=== PATIENT | male | born 1970 | race Caucasian/White ===

== ENCOUNTER 2016-08-03 06:25 | Emergency (ER) | payer OTHER ==
[~2016-08-03] VITALS: Ht 185.4 cm; Wt 113.4 kg
[2016-08-03] MEDS ORDERED: OSEL75CA PO (06:39)
[2016-08-03] MEDS ORDERED: TYLE500T78 PO (06:40)
[2016-08-03] MEDS ORDERED: NS 1,000 ML IV ONE (07:15)
[2016-08-03] MEDS ORDERED: ONDANSETRON 4MG/2ML VIAL (J2405) IV ONE (07:15)
--- NOTE | 2016-08-03 07:57 | REP ---
Clinical: Syncope . Comparison: 09/21/2013 . Findings: The mediastinum and cardiac silhouette are stable and within normal limits for portable technique. The lung willett are clear without acute consolidation, effusion, or pneumothorax. Skeletal structures are intact. Impression: Normal portable chest x-ray Signed by Roni Soriano MD 08/03/2016 07:48 A
[2016-08-03 08:11] LABS: BASO % 0.5 % (0.0-1.0); EOS % 2.4 % (0.0-3.0); LARGE UNSTAINED CELL # 0.1 K/mm3 (0.0-0.4); LARGE UNSTAINED CELL % 2.9 % (0.0-4.0); LYMPH # 0.9 K/mm3 (1.5-4.5); LYMPH % 45.2 % (24.0-44.0); MEAN CORPUSCULAR HEMOGLOBIN 30.3 pg (27.0-33.0); MEAN CORPUSCULAR HGB CONC 34.3 g/dl (32.0-36.5); MEAN CORPUSCULAR VOLUME 88.4 fl (80.0-96.0); MONO # 0.1 K/mm3 (0.0-0.8); MONO % 7.3 % (0.0-5.0); NEUTROPHILS # 0.8 K/mm3 (1.8-7.7); NEUTROPHILS % 41.7 % (36.0-66.0); PLATELET COUNT, AUTOMATED 166 k/mm3 (150-450); RED CELL DISTRIBUTION WIDTH 12.2 % (11.5-14.5)
[2016-08-03 08:19] LABS: ANION GAP 7 MEQ/L (8-16); BLOOD UREA NITROGEN 15 MG/DL (7-18); CALCIUM LEVEL 8.2 MG/DL (8.5-10.1); CARBON DIOXIDE LEVEL 28 MEQ/L (21-32); CHLORIDE LEVEL 106 MEQ/L (98-107); CREATININE FOR GFR 0.73 MG/DL (0.70-1.30); GLOMERULAR FILTRATION RATE > 60.0 (>60); GLUCOSE, FASTING 100 MG/DL (70-105); MAGNESIUM LEVEL 2.2 MG/DL (1.8-2.4); POTASSIUM SERUM 3.6 MEQ/L (3.5-5.1); SODIUM LEVEL 141 MEQ/L (136-145)
[2016-08-03 08:43] VITALS: BP 126/80
--- NOTE | 2016-08-03 19:47 | ECGEPIP ---
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
[2016-08-04] MEDS ORDERED: METAL LOCK LOOP XX ONE (05:47)
== END 2016-08-03 09:44 | disposition home or self-care (01) ==
LOC: M ED 07:38
DX: J10.89 Influenza due to other identified influenza virus with other manifestations (principal); R55 Syncope and collapse; Z88.0 Allergy status to penicillin; Z79.899 Other long term (current) drug therapy

== ENCOUNTER 2019-04-10 19:38 | Inpatient (IN) | payer BC, OTHER ==
[~2019-04-10] VITALS: Ht 185.4 cm; Wt 120.2 kg
[~2019-04-10 19:38] MED LIST: OSEL75CA PO; TYLE500T78 PO
[2019-04-10] MEDS ORDERED: IBUP200C25 PO (19:44)
[2019-04-10] MEDS ORDERED: MUCI1TAB16 PO (19:44)
[2019-04-10] MEDS ORDERED: NS 1,000 ML IV ONE (20:15)
[2019-04-10] MEDS ORDERED: ACETAMINOPHEN 500 MG TAB PO ONE (20:15)
[2019-04-10] MEDS ORDERED: cefTRIAXone SOD 1 GM in D5W MINI-BAG PLUS 50 ML IV ONE (20:15)
[2019-04-10] MEDS ORDERED: AZITHROMYCIN INJ 500 MG, VIAL MATE ADAPTER 1 EACH in D5W 250 ML IV ONE (20:15)
[2019-04-10 20:27] LABS: VENOUS BASE EXCESS -1.1 (-2.0-2.0); VENOUS O2 SATURATION 58.1 % (60.0-80.0); VENOUS PARTIAL PRESSURE CO2 37.1 mmHg (38.0-50.0); VENOUS PARTIAL PRESSURE O2 28.9 mmHg (30.0-50.0); VENOUS PH 7.411 UNITS (7.330-7.430); VENOUS STANDARD HCO3 22.6 MEQ/L; VENOUS TOTAL CO2 24.2 MEQ/L (24.0-28.0)
[2019-04-10] MEDS ORDERED: LevoFLOXacin IV 500 MG in IV 1 EA IV ONE (20:30)
[2019-04-10 20:33] LABS: BASO % 0.3 % (0.0-1.0); EOS % 0.4 % (0.0-3.0); HEMATOCRIT 41.2 % (42.0-52.0); HEMOGLOBIN 13.7 g/dl (13.5-17.5); LYMPH # 0.6 10^3/uL (1.5-5.0); LYMPH % 9.3 % (24.0-44.0); MEAN CORPUSCULAR HEMOGLOBIN 29.8 pg (27.0-33.0); MEAN CORPUSCULAR HGB CONC 33.3 g/dl (32.0-36.5); MEAN CORPUSCULAR VOLUME 89.6 fl (80.0-96.0); MONO # 0.5 10^3/uL (0.0-0.8); MONO % 7.9 % (0.0-5.0); NEUTROPHILS # 5.5 10^3/uL (1.5-8.5); NEUTROPHILS % 81.8 % (36.0-66.0); PLATELET COUNT, AUTOMATED 190 10^3/uL (150-450); WHITE BLOOD COUNT 6.8 10^3/uL (4.0-10.0)
[2019-04-10] MEDS ORDERED: ACET-683 PO (20:45)
[2019-04-10 20:53] LABS: BLOOD UREA NITROGEN 18 MG/DL (7-18); CALCIUM LEVEL 8.2 MG/DL (8.5-10.1); CARBON DIOXIDE LEVEL 26 MEQ/L (21-32); CHLORIDE LEVEL 106 MEQ/L (98-107); CREATININE FOR GFR 1.11 MG/DL (0.70-1.30); GLOMERULAR FILTRATION RATE > 60.0 (>56); GLUCOSE, FASTING 125 MG/DL (70-100); POTASSIUM SERUM 3.7 MEQ/L (3.5-5.1); SODIUM LEVEL 139 MEQ/L (136-145)
[2019-04-10 21:03] LABS: INFLUENZA A AMPLIFICATION NEGATIVE (NEGATIVE); INFLUENZA B AMPLIFICATION NEGATIVE (NEGATIVE)
--- NOTE | 2019-04-10 22:06 | HPEPDOC ---
General Date of Admission 04/10/19 Date of Service: Apr 10, 2019 Chief Complaint The patient is a 49-year-old male admitted with a reason for visit of Cold/Flu Symptoms. Source: Patient Exam Limitations: No limitations Severity: Moderate History of Present Illness 49 year old male with no PMH and no PMD has not seen any physician in 3 years initially presented to the urgent care today for fever , cough for 4 days. There he had a cxr and found to have pneumonia and was sent tot ED. As per patient his son has been sick and other family members around him has also had cough, cold and bronchitis. He started having a bad cough , dry 4 days ago with fevers about 102 which he was managing with tylenol and ibuprofen however today cough got worse and fever was up to 104 and he was feeling tired and washed out so went to the urgent care. In the urgent care he was given a nebulizer. 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 He was admitted for left lower lobe pneumonia. Home Medications Scheduled PRN Acetaminophen (Acetaminophen) 500 Mg Tablet, 1,000 MG PO Q6H PRN for PAIN / FEVER, (Reported) Guaifenesin (Mucinex) 1,200 Mg Tab.er.12h, 1,200 MG PO BID PRN for CONGESTION, (Reported) Ibuprofen (Ibuprofen) 200 Mg Capsule, 600 MG PO Q6H PRN for PAIN / FEVER, (Reported) Allergies Coded Allergies: Penicillins (Verified Allergy, Intermediate, HIVES, 04/10/19) Past Medical History Medical History obesity Surgical History tonsillectomy, adenoidectomy Family History Significant Family History: Diabetes (mother ), Renal disease (father ), Other (stroke mother) Social History * Smoker: Denies Alcohol: Denies Drugs: denies 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 A-FIB/CHADSVASC A-FIB History Current/History of A-Fib/PAF?: No Review of Systems Constitutional: Reports: Chills, Fever, Weakness, Fatigue Eyes: Denies: Pain, Vision change ENT: Reports: Head Aches, Post Nasal Drip, Sore Throat Skin: Denies: Rash, Lesions, Breakdown Pulmonary: Reports: Cough Cardiovascular: Denies: Chest Pain, Palpitations, Orthopnea, Paroxysmal Noc. Dyspnea, Lt Headedness Gastrointestinal: Denies: Nausea, Vomiting, Abdominal Pain, Diarrhea Genitourinary: Denies: Dysuria, Frequency, Incontinence, Retention Hematologic: Denies: Bruising, Bleeding Excessively Musculoskeletal: Denies: Neck Pain, Back Pain, Joint Pain, Muscle Pain, Spasms Neurological: Reports: Numbness (in both legs below knee today) Physical Examination General Exam: Positive: Alert, Cooperative, No Acute Distress Eye Exam: Positive: PERRLA, Conjunctiva & lids normal, EOMI; Negative: Sclera icteric ENT Exam: Positive: Atraumatic, Mucous membr. moist/pink, Pharynx Normal Neck Exam: Positive: Supple; Negative: JVD, thyromegaly Chest Exam: Positive: Rales (at cedric both bases left > right), Wheezing, Other (coarse breath sounds. ) Heart Exam: Positive: Rate Normal, Tachycardic, Regular Rhythm, Normal S1, Normal S2; Negative: Murmurs, Rubs Telemetry: Positive: No significant arrhythmia Abdomen Exam: Positive: Normal bowel sounds, Soft; Negative: Tenderness, Hepatospenomegaly Extremity Exam: Positive: Normal pulses; Negative: Clubbing, Cyanosis, Edema Skin Exam: Positive: Nl turgor and temperature; Negative: Breakdown, Lesion Neuro Exam: Positive: Normal Gait, Normal Speech, Cranial Nerves 3-12 NL, Other (numbness in the legs from knee to heels today. ) Psych Exam: Positive: Mental status NL, Mood NL, Oriented x 3 Vital Signs Vital Signs Date Time Temp Pulse Resp B/P (MAP) Pulse Ox O2 Delivery O2 Flow Rate FiO2 04/10/19 20:45 18 136/65 (88) 04/10/19 20:38 93 96 04/10/19 19:52 Room Air 04/10/19 19:39 97.9 Laboratory Data Labs 24H Laboratory Tests 2 04/10/19 20:18: Immature Granulocyte % (Auto) 0.3, Neutrophils (%) (Auto) 81.8H, Lymphocytes (%) (Auto) 9.3L, Monocytes (%) (Auto) 7.9H, Eosinophils (%) (Auto) 0.4, Basophils (%) (Auto) 0.3, Neutrophils # (Auto) 5.5, Lymphocytes # (Auto) 0.6L, Monocytes # (Auto) 0.5, Eosinophils # (Auto) 0.0, Basophils # (Auto) 0.0, Nucleated Red Blood Cells % (auto) 0.0, Blood Gas Bicarbonate Standard 22.6, Venous Blood pH 7.411, Venous Blood Partial Pressure CO2 37.1L, Venous Blood Partial Pressure O2 28.9L, Venous Blood Total Carbon Dioxide 24.2, Venous Blood HCO3 23.0, Venous Blood Oxygen Saturation 58.1L, Venous Blood Base Excess -1.1, Anion Gap 7L, Glomerular Filtration Rate > 60.0, Calcium Level 8.2L, Influenza Type A (RT-PCR) NEGATIVE, Influenza Type B (RT-PCR) NEGATIVE CBC/BMP Laboratory Tests 04/10/19 20:18 Microbiology Microbiology 04/10/19 Blood Culture, Received Pending Assessment/Plan 49 year old male with no PMH and no PMD has not seen any physician in 3 years initially presented to the urgent care today for fever , cough for 4 days. There he had a cxr and found to have pneumonia and was sent tot ED. As per patient his son has been sick and other family members around him has also had cough, cold and bronchitis. He started having a bad cough , dry 4 days ago with fevers about 102 which he was managing with tylenol and ibuprofen however today cough got worse and fever was up to 104 and he was feeling tired and washed out so went to the urgent care. In the urgent care he was given a nebulizer. 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 He was admitted for left lower lobe pneumonia. Community acquired pneumonia due to penicillin allergy will give levofloxacin IVF. Tylenol and ibuprofen for fever. albuterol nebs. Obesity says weight has been unchanged last 2 years. Plan / VTE VTE Prophylaxis Ordered?: Yes WALTER MORA MD Apr 10, 2019 22:06
[2019-04-10] MEDS ORDERED: IBUPROFEN 600 MG TAB PO ONE (22:30)
[2019-04-10] MEDS: NS 1,000 ML IV SCH (22:54)
[2019-04-10 22:56] VITALS: BP 123/66
[2019-04-10] MEDS: ALBUTEROL SULFATE 2.5 MG/0.5 ML INH NEB SOLN NEB SCH (23:43)
[2019-04-11] MEDS ORDERED: PROMETHAZINE INJ 25 MG/ML VIAL (J2550) IV PRN (04:30)
[2019-04-11] MEDS: METHOCARBAMOL 500 MG TAB PO PRN ×3 (04:49→12:14)
[2019-04-11] MEDS: AMITRIPTYLINE 10 MG TAB PO SCH ×2 (04:49→20:16)
[2019-04-11] MEDS: DEXTROMETHORPHAN 60MG/10ML SUSP 90ML BTL(DELSYM) PO PRN ×2 (04:50→16:29)
[2019-04-11] MEDS: NS 1,000 ML IV SCH ×3 (04:53→20:14)
[2019-04-11] MEDS: ACETAMINOPHEN 500 MG TAB PO PRN ×2 (04:53→16:29)
[2019-04-11 06:15] LABS: HEMATOCRIT 36.5 % (42.0-52.0); HEMOGLOBIN 12.2 g/dl (13.5-17.5); MEAN CORPUSCULAR HGB CONC 33.4 g/dl (32.0-36.5); MEAN CORPUSCULAR VOLUME 89.9 fl (80.0-96.0); PLATELET COUNT, AUTOMATED 154 10^3/uL (150-450); RED BLOOD COUNT 4.06 10^6/uL (4.30-6.10); WHITE BLOOD COUNT 5.3 10^3/uL (4.0-10.0)
[2019-04-11 06:23] VITALS: BP 110/56
[2019-04-11 06:37] LABS: BLOOD UREA NITROGEN 17 MG/DL (7-18); CALCIUM LEVEL 8.4 MG/DL (8.5-10.1); CARBON DIOXIDE LEVEL 24 MEQ/L (21-32); CHLORIDE LEVEL 107 MEQ/L (98-107); CREATININE FOR GFR 0.95 MG/DL (0.70-1.30); GLOMERULAR FILTRATION RATE > 60.0 (>56); GLUCOSE, FASTING 148 MG/DL (70-100); POTASSIUM SERUM 3.2 MEQ/L (3.5-5.1); SODIUM LEVEL 138 MEQ/L (136-145)
[2019-04-11] MEDS: ALBUTEROL SULFATE 2.5 MG/0.5 ML INH NEB SOLN NEB SCH ×3 (07:24→23:32)
[2019-04-11] MEDS: HEPARIN SOD (PORCINE) 5000 UNITS/ML VIAL SQ SCH ×2 (08:37→20:17)
[2019-04-11] MEDS: IBUPROFEN 800 MG TAB PO PRN ×2 (08:37→21:13)
[2019-04-11] MEDS ORDERED: POTASSIUM CHLORIDE 10 MEQ SR TABLET PO ONE (09:00)
[2019-04-11 14:00] VITALS: BP 121/72
--- NOTE | 2019-04-11 19:10 | IPNPDOC ---
Text Note Date of Service The patient was seen on 04/11/19. NOTE Subjective: -No complaints this morning, feels much better -No chest pain, shortness of breath, palpitations 10 point ROS was reviewed and otherwise negative if not noted above Objective: Vitals: Hemodynamically stable and afebrile General: Obese, NAD, was sleeping comfortably, awoke on voice HEENT: NCAT, MMM, PERRLA, EOMI Neck: No JVD, supple Pulm: L>R bibasilar crackles, otherwise without wheezing or rhonchi and moving air relatively well Cardiac: RRR, no noted murmurs Abd: Obese, soft, NTND Ext: no LE edema, report feet numbness bilaterally in toes, WWP Neuro: Grossly non focal exam, with feet sensation and proprioception intact despite numbness Labs: Reviewed. K 3.2, repleted Imaging: CXR showed LLL opacity 49 year old man with no known past medical history and no interaction with the healthcare system in a while (3 years) who presented to urgent care for fever and cough for 4 days and a CXR showed likely pneumonia and thus sent to the ED for evaluation where he reported his family members being recently ill with a URI and was admitted for left lower lobe pneumonia. Community acquired pneumonia -continue levofloxacin -s/p IVF. -Tylenol for fever. -albuterol nebs PRN Obesity -Discussed the benefit of weight loss and perhaps beginning with establishing a PCP who would help chart a longitudinal plan which he agrees to do at discharge. DVT ppx: heparin Diet: regular VS,Fishbone, I+O VS, Fishbone, I+O Laboratory Tests 04/10/19 20:18 04/11/19 06:05 Vital Signs Date Time Temp Pulse Resp B/P (MAP) Pulse Ox O2 Delivery O2 Flow Rate FiO2 04/11/19 14:00 100.0 88 17 121/72 (88) 95 Room Air I&O- Last 24 Hours up to 6 AM 04/11/19 06:00 Intake Total 3655 ml Output Total 0 ml Balance 3655 ml DAPHNE PETERSEN MD Apr 11, 2019 19:10
[2019-04-11] MEDS: LevoFLOXacin IV 750 MG in IV 1 EA IV SCH (20:15)
[2019-04-11 22:00] VITALS: BP 119/71
[2019-04-12] MEDS: NS 1,000 ML IV SCH ×3 (05:42→23:00)
[2019-04-12] MEDS: ACETAMINOPHEN 500 MG TAB PO PRN ×3 (05:42→23:39)
[2019-04-12 06:00] VITALS: BP 119/72
[2019-04-12] MEDS: ALBUTEROL SULFATE 2.5 MG/0.5 ML INH NEB SOLN NEB SCH ×2 (07:37→23:20)
[2019-04-12 08:20] LABS: HEMATOCRIT 35.7 % (42.0-52.0); HEMOGLOBIN 11.6 g/dl (13.5-17.5); MEAN CORPUSCULAR HEMOGLOBIN 29.4 pg (27.0-33.0); MEAN CORPUSCULAR HGB CONC 32.5 g/dl (32.0-36.5); MEAN CORPUSCULAR VOLUME 90.6 fl (80.0-96.0); PLATELET COUNT, AUTOMATED 170 10^3/uL (150-450); RED BLOOD COUNT 3.94 10^6/uL (4.30-6.10); WHITE BLOOD COUNT 5.1 10^3/uL (4.0-10.0)
[2019-04-12 08:41] LABS: BLOOD UREA NITROGEN 15 MG/DL (7-18); CALCIUM LEVEL 7.9 MG/DL (8.5-10.1); CARBON DIOXIDE LEVEL 23 MEQ/L (21-32); CHLORIDE LEVEL 109 MEQ/L (98-107); CREATININE FOR GFR 0.69 MG/DL (0.70-1.30); GLOMERULAR FILTRATION RATE > 60.0 (>56); GLUCOSE, FASTING 124 MG/DL (70-100); POTASSIUM SERUM 3.7 MEQ/L (3.5-5.1); SODIUM LEVEL 140 MEQ/L (136-145)
[2019-04-12] MEDS: HEPARIN SOD (PORCINE) 5000 UNITS/ML VIAL SQ SCH ×2 (09:37→21:06)
[2019-04-12] MEDS: IBUPROFEN 800 MG TAB PO PRN ×2 (09:37→21:05)
[2019-04-12] MEDS: METHOCARBAMOL 500 MG TAB PO PRN ×2 (09:38→16:00)
[2019-04-12] MEDS ORDERED: VANCOMYCIN HCL 1,000 MG, VIAL MATE ADAPTER 1 EACH in D5W 250 ML IV SCH (09:45)
--- NOTE | 2019-04-12 10:18 | IPNPDOC ---
Text Note Date of Service The patient was seen on 04/12/19. NOTE Subjective: -Actually feels quite poorly today, cannot lay on his left side, is now coughing up thick greenish sputum and had a fever overnight to 101 while on levaquin -No chest pain, shortness of breath, palpitations 10 point ROS was reviewed and otherwise negative except noted above Objective: Vitals: Hemodynamically stable and afebrile this morning, but had fever Tmax General: Obese, NAD HEENT: NCAT, MMM, PERRLA, EOMI Neck: No JVD, supple Pulm: L>R lower posterior lung crackles, otherwise without wheezing or rhonchi Cardiac: RRR, no noted murmurs Abd: Obese, soft, NTND Ext: no LE edema, WWP Neuro: Grossly non focal exam Labs: Reviewed. WBC 5.1, H/H 11.6/35.7, Cr 0.69 Imaging: No new interval imaging. Admission CXR with LLL opacity 49 year old man with no known past medical history and no interaction with the healthcare system in a while (3 years) who presented to urgent care for fever and cough for 4 days and a CXR showed likely pneumonia and thus sent to the ED for evaluation where he reported his family members being recently ill with a URI and was admitted for left lower lobe pneumonia with course c/b fever through levaquin, now empirically given vanc and recultured. Community acquired pneumonia -continue levofloxacin, give empiric vanc and resent sputum culture and blood cultures -s/p IVF, HDS -Tylenol for fever. -albuterol nebs PRN -continue dextromethorphan Obesity -To follow up after establishing PCP DVT ppx: heparin Diet: regular VS,Fishbone, I+O VS, Fishbone, I+O Laboratory Tests 04/12/19 07:47 Vital Signs Date Time Temp Pulse Resp B/P (MAP) Pulse Ox O2 Delivery O2 Flow Rate FiO2 04/12/19 06:00 98.9 86 16 119/72 (88) 97 Room Air I&O- Last 24 Hours up to 6 AM 04/12/19 06:00 Intake Total 2770 ml Balance 2770 ml DAPHNE PETERSEN MD Apr 12, 2019 10:18
[2019-04-12] MEDS ORDERED: VANCOMYCIN HCL 1,000 MG, VIAL MATE ADAPTER 1 EACH in D5W 250 ML IV ONE ×2 (11:00→12:00)
--- NOTE | 2019-04-12 13:53 | PHACANCOPD ---
PHARMACY VANCOMYCIN DOSING Pt Demographics Demographics Patient Age:49 , Weight:121.800 , Gender: male Events Past 24 Hours Events Past 24 Hours: NO: Dialysis, Diuretic Therapy, Change in CrCl, Fever, Elevation in WBC, Pending Diagnostics, Pending Procedures, Other Vancomycin Vancomycin indication: COMMUNITY ACQUIRED PNUEMONIA Vancomycin Target Ranges: 15-20 mcg/ml Vancomycin Load Y/N: Yes Load Dose Date Time Vancomycin Load Dose: 2G Date: 04/12/19 Time: 1100 Vancomycin Dose Date: 04/12/19. Current Vancomycin Dose: 1250MG Q8H STARTING AT 1600 Intermittent Dosing?: No Labs Labs Laboratory Tests 04/12/19 07:47 Micro Microbiology 04/12/19 Gram Stain - Final, Resulted 04/12/19 Sputum Culture, Resulted Pending 04/12/19 Blood Culture, Received Pending 04/12/19 Blood Culture, Received Pending 04/11/19 Gram Stain - Final, Resulted 04/11/19 Sputum Culture, Resulted Pending 04/10/19 Blood Culture - Preliminary, Resulted No growth after 24 hours . All specim... Creatinine Clearance Date:04/12/19. Creatinine Clearance: 173 calculated Pending Labs BC PENDING, UC PENDING, MRSA PCR PENDING Assessment and Plan Maintaining Current Dose?: Yes Reason for dose change: No Dose Change Pharmacist Note Pharmacist Note Date: 04/12/19. Pharmacist note: Patient being treated with levaquin 750mg q24h and also vancomycin IV for community acquired pneumonia. BC pending, UC pending, and MRSA PCR pending. Patient does not have a history of vancomycin IV here at [facility]. Calculated CrCl is 173. I gave a 2gram IV vancomycin load at 1100 followed by a maintenance dose of 1250mg q8h to start at 1600. I scheduled a trough to be taken tomorrow before the 5th dose with the morning labs. I will continue to monitor this patient and adjust dose as needed. TYESHA CALIX PHARMACY Apr 12, 2019 13:53
[2019-04-12 14:00] VITALS: BP 119/72
[2019-04-12] MEDS: VANCOMYCIN HCL 500 MG in D5W MINI-BAG PLUS 100 ML IV SCH ×2 (17:18→23:39)
[2019-04-12] MEDS: VANCOMYCIN HCL 750 MG, VIAL MATE ADAPTER 1 EACH in D5W 250 ML IV SCH (17:19)
[2019-04-12 18:00] VITALS: BP 123/77
[2019-04-12 20:00] VITALS: BP 123/79
[2019-04-12] MEDS: LevoFLOXacin IV 750 MG in IV 1 EA IV SCH (21:05)
[2019-04-12] MEDS: AMITRIPTYLINE 10 MG TAB PO SCH (21:06)
[2019-04-13] VITALS (7 sets, daily range): BP systolic 110–138; BP diastolic 17–89
[2019-04-13] MEDS: VANCOMYCIN HCL 750 MG, VIAL MATE ADAPTER 1 EACH in D5W 250 ML IV SCH (00:36)
[2019-04-13] MEDS: NS 1,000 ML IV SCH ×2 (05:03→06:11)
[2019-04-13] MEDS: ALBUTEROL SULFATE 2.5 MG/0.5 ML INH NEB SOLN NEB SCH ×2 (07:14→23:32)
[2019-04-13 07:55] LABS: VANCOMYCIN LEVEL TROUGH 11.8 UG/ML (10.0-20.0)
[2019-04-13] MEDS: VANCOMYCIN HCL 500 MG in D5W MINI-BAG PLUS 100 ML IV SCH (08:03)
[2019-04-13] MEDS: ACETAMINOPHEN 500 MG TAB PO PRN ×2 (08:04→20:14)
[2019-04-13] MEDS: HEPARIN SOD (PORCINE) 5000 UNITS/ML VIAL SQ SCH ×2 (09:02→20:31)
[2019-04-13 09:14] LABS: BLOOD UREA NITROGEN 10 MG/DL (7-18); CALCIUM LEVEL 8.4 MG/DL (8.5-10.1); CARBON DIOXIDE LEVEL 29 MEQ/L (21-32); CHLORIDE LEVEL 108 MEQ/L (98-107); CREATININE FOR GFR 0.72 MG/DL (0.70-1.30); GLOMERULAR FILTRATION RATE > 60.0 (>56); GLUCOSE, FASTING 102 MG/DL (70-100); POTASSIUM SERUM 3.8 MEQ/L (3.5-5.1); SODIUM LEVEL 140 MEQ/L (136-145)
[2019-04-13] MEDS: IBUPROFEN 800 MG TAB PO PRN (13:48)
[2019-04-13] MEDS ORDERED: VANCOMYCIN HCL 1,000 MG, VIAL MATE ADAPTER 1 EACH in D5W 250 ML IV SCH (16:00)
--- NOTE | 2019-04-13 16:42 | REP ---
Clinical: Pneumonia. Technique: PA and lateral. Comparison: 08/03/2016. Findings: Significant left lower lobe infiltrates and subtle suspected right lower lobe infiltrate compatible with acute pneumonia. No obvious effusion. No pneumothorax. Possible reactive mediastinal/hilar adenopathy cannot be excluded. Skeletal structures intact. Impression: Significant left lower lobe pneumonia with adenopathy and possible extension to the right lower lobe. Electronically Signed by Roni Soriano MD 04/13/2019 04:32 P
--- NOTE | 2019-04-13 17:46 | IPNPDOC ---
Text Note Date of Service The patient was seen on 04/13/19. NOTE Subjective: -No complaints this morning, feels much better -No chest pain, shortness of breath, palpitations -Sputum production much reduced -Told me that he recently was caring for his newly arrived horse from [place] that had pneumonia from a soil spore infection and is concerned that he may have the same. -However shortly after sputum grew Group B strep 10 point ROS was reviewed and otherwise negative if not noted above Objective: Vitals: Hemodynamically stable and afebrile General: Obese, NAD, sitting up in chair, looks much better and awake, alert and conversational today HEENT: NCAT, MMM, PERRLA, EOMI Neck: No JVD, supple Pulm: Stable L>R bibasilar crackles, otherwise without wheezing or rhonchi and moving air very well Cardiac: RRR, no noted murmurs Abd: Obese, soft, NTND Ext: no LE edema, WWP Neuro: Grossly non focal exam Labs: Reviewed. Sputum growing GBS Imaging: getting an interval CXR today 49 year old man with no known past medical history and no interaction with the healthcare system in a while (3 years) who presented to urgent care for fever and cough for 4 days and a CXR showed likely pneumonia and thus sent to the ED for evaluation where he reported his family members being recently ill with a URI and was admitted for left lower lobe pneumonia, now confirmed 2/2 group B strep infection, doing well on levaquin. Community acquired pneumonia -switch levofloxacin from IV to PO, dc vanc after MRSA was negative -s/p IVF -Tylenol for fever -albuterol nebs PRN Obesity -Working on establishing PCP to discuss further as an outpatient. We started the conversation about potential lifestyle changes. DVT ppx: heparin Diet: regular Dispo: home tomorrow AM likely VS,Fishbone, I+O VS, Fishbone, I+O Laboratory Tests 04/13/19 07:00 Vital Signs Date Time Temp Pulse Resp B/P (MAP) Pulse Ox O2 Delivery O2 Flow Rate FiO2 04/13/19 14:00 97.4 78 18 115/73 (87) 94 Room Air I&O- Last 24 Hours up to 6 AM 04/13/19 06:00 Intake Total 3340 ml Balance 3340 ml DAPHNE PETERSEN MD Apr 13, 2019 17:46
[2019-04-13] MEDS ORDERED: LevoFLOXacin 750 MG TABLET PO SCH (18:00)
[2019-04-13] MEDS: AMITRIPTYLINE 10 MG TAB PO SCH (20:30)
[2019-04-14 01:00] VITALS: BP 118/73
[2019-04-14 05:00] VITALS: BP 131/84
[2019-04-14] MEDS: ACETAMINOPHEN 500 MG TAB PO PRN (05:51)
[2019-04-14] MEDS: ALBUTEROL SULFATE 2.5 MG/0.5 ML INH NEB SOLN NEB SCH (07:33)
[2019-04-14] MEDS: IBUPROFEN 800 MG TAB PO PRN (08:25)
--- NOTE | 2019-04-14 08:37 | DS.PDOC ---
Discharge Summary General Date of Admission Apr 10, 2019 at 21:49 Date of Discharge 04/14/2019 Attending Physician: DAPHNE PETERSEN MD Discharge Summary PROCEDURES PERFORMED DURING STAY: None ADMITTING DIAGNOSES: 1. Community acquired pneumonia DISCHARGE DIAGNOSES: 1. Group B strep pneumonia COMPLICATIONS/CHIEF COMPLAINT: Pneumonia. HISTORY OF PRESENT ILLNESS: 49 year old man with no known past medical history and no interaction with the healthcare system in a while (3 years) who presented to urgent care for fever and cough for 4 days and a CXR showed likely pneumonia and thus sent to the ED for evaluation where he reported his family members being recently ill with a URI. HOSPITAL COURSE: As stated above, Mr. Lucas has had no contact with the health care system for >3 years now and is relatively in good health at baseline as far as he knows. He arrived in the ED hemodynamically stable and his labs were notable for no significant leukocytosis but given the urgent care CXR, left lower lobe crackles, cough with productive green sputum, he was admitted and empirically started on levaquin IV for community acquired pneumonia. His course was c/b by a fever while on levauin on day 2 of his admission that prompted an addition of vancomycin with blood and repeat sputum culture (initial sputum was negative for organisms). The blood cultures were negative, MRSA was also negative and thus vancomycin was discontinued and levaquin continued. On acquiring more history, Mr. Mcclelland reported having recently purchased a horse from [place] that arrived and unfortunately had pneumonia with green secretions and was treated by his vet who reported the pneumonia having been 2/2 to spore found in the soil in [place]. They placed the horse in quarantine and Mr. Mcclelland had been the only member of his family to handle the animal through its illness so he was concerned about a pneumonia from an organism that may not be common. Fortunately his second sputum sample confirmed group B strep sensitive to levaquin and so he was continued on it with great improvement and and switched to PO. He is now being discharged home to finish off a 7 day course. We are also working on establishing a PCP for him to follow up with. DISCHARGE MEDICATIONS: Please see below. ALLERGIES: Please see below. PHYSICAL EXAMINATION ON DISCHARGE: Vitals: Hemodynamically stable and afebrile General: Obese, NAD, sitting up in chair, looks much better and awake, alert and conversational today HEENT: NCAT, MMM, PERRLA, EOMI Neck: No JVD, supple Pulm: Trace L>R bibasilar crackles, otherwise without wheezing or rhonchi and moving air very well Cardiac: RRR, no noted murmurs Abd: Obese, soft, NTND Ext: no LE edema, WWP Neuro: Grossly non focal exam LABORATORY DATA: Please see below. IMAGIN04/13/2019 CXR: Significant left lower lobe pneumonia with adenopathy and possible extension to the right lower lobe. PROGNOSIS: Good ACTIVITY: As tolerated DIET: Regular DISCHARGE PLAN: Home with PCP follow up DISPOSITION: Home DISCHARGE INSTRUCTIONS: 1. Please complete the levaquin course and follow up with your new PCP for follow up on the resolution of the pneumonia ITEMS TO FOLLOWUP ON OUTPATIENT: 1. GBS pneumonia DISCHARGE CONDITION: Good TIME SPENT ON DISCHARGE: 45 minutes. Vital Signs/I&Os Vital Signs Date Time Temp Pulse Resp B/P (MAP) Pulse Ox O2 Delivery O2 Flow Rate FiO2 04/14/19 05:00 99.5 70 18 131/84 (100) 93 Room Air I&O- Last 24 Hours up to 6 AM 04/14/19 06:00 Intake Total 690 ml Output Total 0 ml Balance 690 ml Microbiology Microbiology 04/12/19 Gram Stain - Final, Resulted 04/12/19 Sputum Culture, Resulted Pending 04/12/19 Blood Culture - Preliminary, Resulted No growth after 24 hours . All specim... 04/12/19 Blood Culture - Preliminary, Resulted No growth after 24 hours . All specim... 04/11/19 Gram Stain - Final, Complete 04/11/19 Sputum Culture - Final, Complete Strep Agalactiae Group B 04/10/19 Blood Culture - Preliminary, Resulted No Growth after 72 hours. All specime... Discharge Medications Scheduled PRN Acetaminophen (Acetaminophen) 500 Mg Tablet, 1,000 MG PO Q6H PRN for PAIN / FEVER, (Reported) Guaifenesin (Mucinex) 1,200 Mg Tab.er.12h, 1,200 MG PO BID PRN for CONGESTION, (Reported) Ibuprofen (Ibuprofen) 200 Mg Capsule, 600 MG PO Q6H PRN for PAIN / FEVER, (Reported) Allergies Coded Allergies: Penicillins (Verified Allergy, Intermediate, HIVES, 04/10/19) DAPHNE PETERSEN V. MD Apr 14, 2019 08:37
[2019-04-14] MEDS ORDERED: LEVA750T7 PO (08:40)
[2019-04-14] MEDS: HEPARIN SOD (PORCINE) 5000 UNITS/ML VIAL SQ SCH (09:00)
[2019-04-14 10:48] LABS: HEMATOCRIT 37.2 % (42.0-52.0); HEMOGLOBIN 12.3 g/dl (13.5-17.5); MEAN CORPUSCULAR HEMOGLOBIN 29.7 pg (27.0-33.0); MEAN CORPUSCULAR HGB CONC 33.1 g/dl (32.0-36.5); MEAN CORPUSCULAR VOLUME 89.9 fl (80.0-96.0); PLATELET COUNT, AUTOMATED 235 10^3/uL (150-450); RED BLOOD COUNT 4.14 10^6/uL (4.30-6.10); WHITE BLOOD COUNT 4.2 10^3/uL (4.0-10.0)
[2019-04-14 11:09] LABS: BLOOD UREA NITROGEN 11 MG/DL (7-18); CALCIUM LEVEL 9.1 MG/DL (8.5-10.1); CARBON DIOXIDE LEVEL 29 MEQ/L (21-32); CHLORIDE LEVEL 105 MEQ/L (98-107); CREATININE FOR GFR 0.79 MG/DL (0.70-1.30); GLOMERULAR FILTRATION RATE > 60.0 (>56); GLUCOSE, FASTING 102 MG/DL (70-100); POTASSIUM SERUM 3.7 MEQ/L (3.5-5.1); SODIUM LEVEL 138 MEQ/L (136-145)
== END 2019-04-14 13:20 | disposition home or self-care (01) | DRG 139 ==
LOC: M ED 19:38 → M ED INP 21:49 → M MS5PR 22:45
PROVIDERS: ADMIT Internal Medicine Nephrology; ATTEND Internal Medicine
DX: J15.3 Pneumonia due to streptococcus, group B (principal); E66.9 Obesity, unspecified; Z79.899 Other long term (current) drug therapy; Z88.0 Allergy status to penicillin; Z68.35 Body mass index [BMI] 35.0-35.9, adult; Z90.49 Acquired absence of other specified parts of digestive tract

== ENCOUNTER 2019-04-22 10:07 | Emergency (ER) | payer BC ==
[~2019-04-22] VITALS: Ht 185.4 cm; Wt 115.0 kg
[~2019-04-22 10:07] MED LIST changes: +ACET-683 PO; +IBUP200C25 PO; +LEVA750T7 PO; +MUCI1TAB16 PO
[2019-04-22] MEDS ORDERED: NS 1,000 ML IV ONE (11:15)
[2019-04-22] MEDS ORDERED: IPRATROPIUM 0.5MG/ALBUTEROL 2.5MG INH SOL UD 3ML (DUONEB)(J7620) NEB ONE (11:15)
[2019-04-22 12:04] LABS: BASO % 0.4 % (0.0-1.0); EOS # 0.2 10^3/uL (0.0-0.5); EOS % 2.3 % (0.0-3.0); HEMATOCRIT 45.1 % (42.0-52.0); HEMOGLOBIN 14.9 g/dl (13.5-17.5); LYMPH # 2.1 10^3/uL (1.5-5.0); LYMPH % 30.9 % (24.0-44.0); MEAN CORPUSCULAR HEMOGLOBIN 29.7 pg (27.0-33.0); MEAN CORPUSCULAR VOLUME 89.8 fl (80.0-96.0); MONO # 0.5 10^3/uL (0.0-0.8); MONO % 7.3 % (0.0-5.0); NEUTROPHILS % 58.5 % (36.0-66.0); PLATELET COUNT, AUTOMATED 312 10^3/uL (150-450); RED BLOOD COUNT 5.02 10^6/uL (4.30-6.10); WHITE BLOOD COUNT 6.8 10^3/uL (4.0-10.0)
[2019-04-22 12:36] LABS: ALBUMIN 3.9 GM/DL (3.2-5.2); ALT/SGPT 53 U/L (12-78); BILIRUBIN,DIRECT 0.2 MG/DL (0.0-0.2); BILIRUBIN,TOTAL 0.6 MG/DL (0.2-1.0); BLOOD UREA NITROGEN 19 MG/DL (7-18); CALCIUM LEVEL 9.3 MG/DL (8.5-10.1); CARBON DIOXIDE LEVEL 30 MEQ/L (21-32); CHLORIDE LEVEL 102 MEQ/L (98-107); GLOMERULAR FILTRATION RATE > 60.0 (>56); GLUCOSE, FASTING 92 MG/DL (70-100); NT-PRO BNP 14 PG/ML (<125); POTASSIUM SERUM 4.7 MEQ/L (3.5-5.1); SODIUM LEVEL 140 MEQ/L (136-145); TOTAL PROTEIN 7.9 GM/DL (6.4-8.2)
[2019-04-22 14:42] VITALS: BP 136/89
--- NOTE | 2019-04-23 07:52 | REP ---
Chest x-ray: Two views. History: Shortness of breath. Reading of outside radiographs. Comparison chest x-ray study is from April 13, 2019. Comparison study showed fairly extensive infiltrate in the left lower lobe consistent with pneumonia. Possible infiltrate in the right lower lobe. Findings: The infiltrate in the left lower lobe is significantly improved, nearly resolved. Some prominent interstitial markings persist. No new infiltrate is seen. The right lung is clear. Pleural angles are sharp. Cardiomediastinal silhouette is unremarkable. Impression: Recently noted left lower lobe pneumonia is nearly resolved radiographically. No new infiltrate. Otherwise no acute disease. Electronically Signed by Pillo Stern MD 04/22/2019 02:02 P
== END 2019-04-22 14:46 | disposition home or self-care (01) ==
LOC: M ED 10:07
DX: J18.9 Pneumonia, unspecified organism (principal); Z88.0 Allergy status to penicillin

== ENCOUNTER → 2019-05-04 | Outpatient (REF) | payer BC | LOC: M SFHCADAM 11:17 | PROVIDERS: ATTEND Physician Assistant Medical | DX: Z53.9 Procedure and treatment not carried out, unspecified reason (principal) ==

== ENCOUNTER → 2019-05-07 | Outpatient (CLI) | payer BC ==
--- NOTE | 2019-05-07 09:44 | REP ---
Clinical: Follow up left lower lobe infiltrate. Technique: PA and lateral. Comparison: 04/13/2019. Findings: Mediastinum and cardiac silhouette are normal. Lung willett demonstrate chronic appearing changes and the previously noted left lower lobe infiltrate has resolved. No effusion. No pneumothorax. Skeletal structures intact. Impression: Chronic stable changes. Previous left lower lobe infiltrate resolved. Electronically Signed by Roni Soriano MD 05/07/2019 09:35 A
== END ==
LOC: M ADAMS 09:16
PROVIDERS: ATTEND Physician Assistant Medical
DX: J18.9 Pneumonia, unspecified organism (principal)

== ENCOUNTER → 2019-05-07 | Outpatient (REF) | payer BC ==
[2019-05-07 12:03] LABS: BASO % 0.4 % (0.0-1.0); EOS # 0.3 10^3/uL (0.0-0.5); EOS % 5.8 % (0.0-3.0); HEMATOCRIT 41.9 % (42.0-52.0); HEMOGLOBIN 13.9 g/dl (13.5-17.5); LYMPH # 2.1 10^3/uL (1.5-5.0); LYMPH % 43.2 % (24.0-44.0); MEAN CORPUSCULAR HGB CONC 33.2 g/dl (32.0-36.5); MEAN CORPUSCULAR VOLUME 90.3 fl (80.0-96.0); MONO # 0.3 10^3/uL (0.0-0.8); MONO % 6.7 % (0.0-5.0); NEUTROPHILS # 2.1 10^3/uL (1.5-8.5); NEUTROPHILS % 43.7 % (36.0-66.0); PLATELET COUNT, AUTOMATED 194 10^3/uL (150-450); RED BLOOD COUNT 4.64 10^6/uL (4.30-6.10); WHITE BLOOD COUNT 4.8 10^3/uL (4.0-10.0)
[2019-05-07 12:28] LABS: ERYTHROCYTE SEDIMENTATION RATE 23 mm/hr (0-20)
[2019-05-07 12:54] LABS: ALBUMIN 3.8 GM/DL (3.2-5.2); ALT/SGPT 43 U/L (12-78); BILIRUBIN,TOTAL 0.7 MG/DL (0.2-1.0); BLOOD UREA NITROGEN 20 MG/DL (7-18); C REACTIVE PROTEIN QUANTITATIV 0.72 MG/DL (0.00-0.30); CALCIUM LEVEL 9.4 MG/DL (8.5-10.1); CARBON DIOXIDE LEVEL 29 MEQ/L (21-32); CHLORIDE LEVEL 108 MEQ/L (98-107); CREATININE FOR GFR 0.82 MG/DL (0.70-1.30); GLOMERULAR FILTRATION RATE > 60.0 (>56); GLUCOSE, FASTING 91 MG/DL (70-100); POTASSIUM SERUM 4.5 MEQ/L (3.5-5.1); SODIUM LEVEL 140 MEQ/L (136-145); THYROID STIMULATING HORMONE 0.859 uIU/ML (0.358-3.740); TOTAL PROTEIN 7.4 GM/DL (6.4-8.2)
[2019-05-09 00:06] LABS: Lyme Disease IgG/IgM Antibodie <0.91 ISR (0.00-0.90); Lyme Disease IgM Ab Quantitati <0.80 index (0.00-0.79)
== END ==
LOC: M SFHCADAM 09:14
PROVIDERS: ATTEND Physician Assistant Medical
DX: J18.9 Pneumonia, unspecified organism (principal); R05 Cough; R07.9 Chest pain, unspecified; M25.50 Pain in unspecified joint

== ENCOUNTER → 2019-06-24 | Outpatient (REF) | payer BC ==
[2019-06-24 13:32] LABS: BASO % 0.4 % (0.0-1.0); EOS # 0.2 10^3/uL (0.0-0.5); EOS % 4.5 % (0.0-3.0); HEMOGLOBIN 14.7 g/dl (13.5-17.5); LYMPH % 43.5 % (24.0-44.0); MEAN CORPUSCULAR HEMOGLOBIN 29.6 pg (27.0-33.0); MEAN CORPUSCULAR HGB CONC 32.7 g/dl (32.0-36.5); MEAN CORPUSCULAR VOLUME 90.7 fl (80.0-96.0); MONO # 0.4 10^3/uL (0.0-0.8); MONO % 7.7 % (0.0-5.0); NEUTROPHILS % 43.7 % (36.0-66.0); PLATELET COUNT, AUTOMATED 212 10^3/uL (150-450); RED BLOOD COUNT 4.96 10^6/uL (4.30-6.10); WHITE BLOOD COUNT 4.7 10^3/uL (4.0-10.0)
[2019-06-24 13:43] LABS: ALBUMIN 4.1 GM/DL (3.2-5.2); ALT/SGPT 32 U/L (12-78); BILIRUBIN,TOTAL 0.5 MG/DL (0.2-1.0); BLOOD UREA NITROGEN 22 MG/DL (7-18); CALCIUM LEVEL 9.5 MG/DL (8.5-10.1); CARBON DIOXIDE LEVEL 29 MEQ/L (21-32); CHLORIDE LEVEL 104 MEQ/L (98-107); CHOLESTEROL LEVEL 223 MG/DL (<200); CHOLESTEROL RISK RATIO 5.439 (<5); GLOMERULAR FILTRATION RATE > 60.0 (>56); GLUCOSE, FASTING 102 MG/DL (70-100); HDL CHOLESTEROL 41 MG/DL (>40); LDL CHOLESTEROL 162 MG/DL (<100); NON-HDL-C 182 MG/DL; POTASSIUM SERUM 4.8 MEQ/L (3.5-5.1); SODIUM LEVEL 140 MEQ/L (136-145); TOTAL PROTEIN 7.7 GM/DL (6.4-8.2); TRIGLYCERIDES LEVEL 99 MG/DL (<150)
== END ==
LOC: M SFHCADAM 07:56
PROVIDERS: ATTEND Physician Assistant Medical
DX: Z13.220 Encounter for screening for lipoid disorders (principal); E66.9 Obesity, unspecified; M25.50 Pain in unspecified joint

== ENCOUNTER → 2021-05-21 | Outpatient (REF) | payer BC | LOC: M LAB REF 13:58 | PROVIDERS: ATTEND Dermatology | DX: L90.5 Scar conditions and fibrosis of skin (principal) ==

== ENCOUNTER → 2024-03-04 | Outpatient (CLI) | payer BC | LOC: M PLAIMG 14:45 | PROVIDERS: ATTEND Orthopaedic Surgery | DX: S92.212A Displaced fracture of cuboid bone of left foot, initial encounter for closed fracture (principal); Y93.9 Activity, unspecified; Y92.9 Unspecified place or not applicable ==